=== PATIENT | female | born 2000 | race Two or more races ===

== ENCOUNTER → 2024-10-02 | Outpatient (CLI) | payer OTHER, SELFPAY ==
--- NOTE | 2024-10-02 09:30 | XR_ITS ---
Examination: Upper GI series with KUB Esophagram standard Fluoroscopy 28 spot fluoroscopic films of the esophagus stomach and duodenum Exam date and time: October 02, 2024 0954 hours INDICATIONS: Difficulty swallowing beginning 2 weeks ago, cholecystectomy 6 years ago TECHNIQUE AND FINDINGS: Rv Mechanic AP supine abdomen single view Patient swallowed thin barium with 28 spot films obtained of the esophagus, stomach, duodenal bulb, duodenal sweep and small bowel Fluoroscopy 0.32 minutes Primary peristaltic esophageal waves Mild intermittent gastroesophageal reflux. No esophageal constricting lesion No esophageal ulcerations No stricture the gastroesophageal junction No gastric mass or deformity or ulceration Duodenal bulb expands symmetrically Duodenal sweep ligament of Treitz jejunal loops unremarkable IMPRESSION: Mild intermittent gastroesophageal reflux No stricture at the gastroesophageal junction
== END | disposition home or self-care (01) ==
PROVIDERS: PCP Family Medicine; Referring Provider Physician Assistant; Visit Provider Physician Assistant
DX: K21.9 Gastro-esophageal reflux disease without esophagitis (principal)
CPT/HCPCS: 74240